=== PATIENT | male | born 1955 | race African-American/Black ===

== ENCOUNTER 2020-05-01 09:23 | Day surgery (SDC) | payer OTHER ==
[~2020-05-01] VITALS: Ht 180.3 cm; Wt 100.0 kg
[~2020-05-01 09:23] MED LIST: ASPIRIN E.C. 8181 MG PO; COREG 25MG25 MG/TAB PO; IRON TABLETS325 MG PO; LANTUS SOLOS100 U/ML SQ; MAG DELAY64 M1 PO; MYFORTIC180 MG PO; MYFORTIC360 MG PO; NORVASC 5MG5 MG/TAB PO; PRAVACHOL 20MG20 MG PO; PREDFORTE5ML OS; PRINIVIL5 MG PO; PROGRAF 1MG1 MG PO; TUMS500 MG PO; VICTOZA6 MG/ML SQ; VITAMIND3 5000 PO
[2020-05-01 10:13] VITALS: BP 126/85; PULSE 80; TEMP 98
[2020-05-01 11:05] VITALS: BP 130/81; PULSE 73
--- NOTE | 2020-05-01 11:05 | NUR ---
Patient returns to [facility] per cart accompanied by Mindy RN and is awake and alert. IV fluids infusing. Denies pain or nausea. Given sips of water to drink. Temp 98.5 and room air sats 97%. Call light in reach.
[2020-05-01 11:20] VITALS: BP 138/83; PULSE 69
--- NOTE | 2020-05-01 11:20 | NUR ---
Continues to sip on water and denies pain or nausea.
[2020-05-01 11:35] VITALS: BP 143/89; PULSE 71
--- NOTE | 2020-05-01 11:35 | NUR ---
Tolerated water without nausea. Offered snack and wishes to wait until discharge and eat at home. IV discontinued and site is free of redness. Patient awaits to talk with Dr. Duncan.
--- NOTE | 2020-05-01 11:40 | NUR ---
Patient dresses self and notified of ride of dismssal. Spouse will be here at 1230. Dismissal instructions reviewed and voices understanding of these. Will wait in room for ride home.
[2020-05-01] MEDS ORDERED: PROTONIX 40MG T40 MG PO (11:42)
--- NOTE | 2020-05-01 11:44 | NUR ---
Dr. Duncan here and talks with the patient. All questions answered.
--- NOTE | 2020-05-01 12:30 | NUR ---
Patient dismissed to home per private vehicle driven by spouse and taken to the front door per wheelchair.
== END 2020-05-01 12:30 | disposition home or self-care (01) ==
LOC: SDCO 09:23
DX: K52.9 Noninfective gastroenteritis and colitis, unspecified (principal); K29.30 Chronic superficial gastritis without bleeding; K29.80 Duodenitis without bleeding; D50.9 Iron deficiency anemia, unspecified; K44.9 Diaphragmatic hernia without obstruction or gangrene; J45.909 Unspecified asthma, uncomplicated; E78.00 Pure hypercholesterolemia, unspecified; G47.33 Obstructive sleep apnea (adult) (pediatric); M19.90 Unspecified osteoarthritis, unspecified site; I12.0 Hypertensive chronic kidney disease with stage 5 chronic kidney disease or end stage renal disease; E11.22 Type 2 diabetes mellitus with diabetic chronic kidney disease; N18.6 End stage renal disease; D57.3 Sickle-cell trait; Z20.828 Contact with and (suspected) exposure to other viral communicable diseases; Z87.891 Personal history of nicotine dependence; Z94.0 Kidney transplant status; Z79.51 Long term (current) use of inhaled steroids; Z79.82 Long term (current) use of aspirin; Z79.4 Long term (current) use of insulin
CPT/HCPCS: J2704; J7030